=== PATIENT | female | born 1960 | race Caucasian/White ===

== ENCOUNTER → 2018-03-11 | Outpatient (CLI) | payer BC | END | disposition home or self-care (01) | LOC: KCIC MAMMO 14:24 | DX: Z12.31 Encounter for screening mammogram for malignant neoplasm of breast (principal) | CPT/HCPCS: 77063; 77067 ==

== ENCOUNTER → 2019-06-18 | Outpatient (CLI) | payer BC ==
[2014-05-26 09:27] VITALS: BP 146/83
--- NOTE | 2019-06-19 17:29 | KCIC ---
Bilateral digital screening mammograms with 3-D tomosynthesis: Reason for examination: Routine screening. Comparison is made to previous studies dated 03/11/2018 and 12/29/2015. Bilateral mammograms in CC and oblique projections were obtained with 2-D imaging and 3-D tomosynthesis imaging on a Siemens Inspiration unit and reviewed on the workstation. Interpretation was made with the benefit of CAD. The skin and nipples show no abnormalities. No abnormal axillary lymph nodes are seen. The breast parenchyma shows scattered fatty and fibroglandular density. (Breast density: Category B.) There appear to be small nodules developing in the central right breast 6 cm deep to the nipple measuring 8 mm in size and in the anterior central left breast 4 cm deep to the nipple measuring 5 mm size. These likely represent cysts but can be further evaluated with ultrasound. There are no other new dominant masses, suspicious calcifications or architectural distortion. Impression: Small nodules bilaterally which may represent cysts. Recommend further evaluation with ultrasound. BI-RAD Category 0: Incomplete. Needs additional imaging evaluation. "Our facility is accredited by the [employer] Mammography Program." This patient's information has been entered into a reminder system for the patient to be notified with the results of her examination and a target date for the next mammogram. Electronically signed by: Mayra Rogers MD (06/19/2019 5:26 PM) [id number]
== END | disposition home or self-care (01) ==
LOC: KCIC MAMMO 14:27
PROVIDERS: ATTEND Obstetrics & Gynecology
DX: Z12.31 Encounter for screening mammogram for malignant neoplasm of breast (principal); N63.10 Unspecified lump in the right breast, unspecified quadrant; N63.20 Unspecified lump in the left breast, unspecified quadrant
CPT/HCPCS: 77063; 77067

== ENCOUNTER → 2019-07-07 | Outpatient (CLI) | payer BC ==
[2014-05-26 09:27] VITALS: BP 146/83
--- NOTE | 2019-07-07 12:04 | KCIC ---
EXAM: Bilateral breast sonogram. HISTORY: 59-year-old female presents for evaluation of nodularity within both breasts demonstrated on a mammogram dated 06/18/2019. TECHNIQUE: Sonographic imaging of both breasts including all 4 quadrants of the recommendations was performed. COMPARISON: Mammogram dated 06/18/2019. FINDINGS: Sonographic imaging of the right breast demonstrates scattered areas of benign fibrocystic change. There is a 6.5 mm suspected benign fibrocystic lesion at the 1:00 position 5 cm from the nipple. Sonographic imaging of the left breast demonstrates scattered areas of benign fibrous cystic change. There is a 3.8 mm suspected benign fibrocystic lesion at the 12:00 position 4 cm from the nipple. IMPRESSION: 1. Fibrocystic changes and small benign-appearing fibers cystic lesions within both breasts, described above. This likely accounts for areas of mammographic nodularity of concern. 2. BI-RADS Category 3: Probably benign finding(s). Precautionary short term follow up with a bilateral diagnostic mammogram and sonogram in 6 months is recommended to confirm stability. Electronically signed by: Naheed Dyer MD (07/07/2019 12:01 PM) [facility]
== END | disposition home or self-care (01) ==
LOC: KCIC US 09:51
PROVIDERS: ATTEND Obstetrics & Gynecology
DX: N64.89 Other specified disorders of breast (principal)
CPT/HCPCS: 76641

== ENCOUNTER → 2019-12-31 | Outpatient (CLI) | payer BC ==
[2014-05-26 09:27] VITALS: BP 146/83
--- NOTE | 2019-12-31 11:25 | RAD ---
Examination: Limited right breast ultrasound. INDICATION: Right breast nodule seen on mammography, recommended for ultrasound evaluation. COMPARISON: Bilateral diagnostic mammogram of earlier the same day. TECHNIQUE: Grayscale and color Doppler imaging of the upper inner quadrant right breast was performed. FINDINGS: Sonographically benign nodularity in the upper inner right breast at the 2:00 position 5 cm from the nipple is identified, correlating with the mammographic finding, measuring 8 mm at this visit. Sonographic appearance is benign and shows no significant interval change from the previous ultrasound examination. Patient's mammograms reveal waxing and waning pattern of nodularity compatible with benign fibrocystic change. IMPRESSION: Benign fibrocystic change in the upper inner quadrant right breast. No evidence of malignancy. The left breast was also evaluated earlier this same day by mammography and revealed benign findings. Both breasts are recommended for return to routine mammographic screening next due in one year. BI-RADS Category 2 Benign findings Recommend return to routine screening.
--- NOTE | 2019-12-31 14:07 | RAD ---
Examination: Bilateral digital diagnostic mammogram. INDICATION: Six-month follow-up probably benign bilateral breast nodularity. COMPARISON: Bilateral mammograms of 12/22/2013, 03/11/2018, 06/18/2019. TECHNIQUE: Bilateral CC and MLO views were obtained with 2-D and 3-D technique and reviewed with computer aided detection. A right ML view was also obtained. FINDINGS: Scattered fibroglandular densities. Left mammogram shows interval resolution of the 5 mm nodularity in the anterior central left breast with no developing mass, suspicious calcification or architectural distortion. Right mammogram shows apparent interval enlargement in an oval mass in the upper inner quadrant right breast at the approximate 2:00 position 6 cm from the nipple. This needs additional imaging with targeted right breast ultrasound. This will be performed later the same day and reported separately. IMPRESSION: Incomplete. Right breast needs additional imaging. Recommend targeted ultrasound of the upper inner quadrant right breast. BI-RADS Category 0 Incomplete. Right breast needs additional imaging. BI-RADS 0 -- incomplete assessment
== END | disposition home or self-care (01) ==
LOC: MAMMO 09:28
PROVIDERS: ATTEND Nurse Practitioner Women's Health
DX: N63.12 Unspecified lump in the right breast, upper inner quadrant (principal)
CPT/HCPCS: 76641; 77066; G0279; 77062

== ENCOUNTER → 2020-01-14 | Outpatient (CLI) | payer BC ==
[2014-05-26 09:27] VITALS: BP 146/83
[~2020-01-14] MED LIST: BARIUM SULFATE 340 GM SUSPENSION. PO ONE; BARIUM SULFATE 60% 355 ML SUSP PO ONE; SIMETHICONE/SOD BICARB/CITRIC ACID PACKET. PO ONE
--- NOTE | 2020-01-14 15:51 | RAD ---
Examination: ESOPHAGRAM/BARIUM SWALLOW History: Hiatal hernia evaluation. Comparison/Correlation: None Findings: Single contrast esophagram was performed. Fluoroscopy was utilized for 20 minutes. A total of 25 images were acquired. Minimal presbyesophagus noted. No definite reflux identified during the course of this exam. No suspicious filling defects, webs, or diverticuli. Contrast flows freely into the stomach. No hiatal hernia is identified on prone Valsalva drinking images or other images. No reflux identified on prone Valsalva images. No stricture identified to involve the esophagus. Impression: Minimal presbyesophagus. No hiatal hernia, stricture or reflux identified. Electronically signed by: Shorty Gonzalez MD (01/14/2020 3:48 PM) [facility]
== END | disposition home or self-care (01) ==
LOC: RAD 09:29
PROVIDERS: ATTEND Physician Assistant
DX: K22.8 Other specified diseases of esophagus (principal)
CPT/HCPCS: 74220

== ENCOUNTER → 2020-01-29 | Outpatient (CLI) | payer BC ==
[2014-05-26 09:27] VITALS: BP 146/83
[~2020-01-29] MED LIST changes: -BARIUM SULFATE 340 GM SUSPENSION. PO ONE; -BARIUM SULFATE 60% 355 ML SUSP PO ONE; +CONTRAST GIVEN. MC PRN; +IOHEXOL 240 MG/ML 50ML VIAL. PO ONE; +IOHEXOL 300 MG/ML 100ML VIAL. IV ONE; -SIMETHICONE/SOD BICARB/CITRIC ACID PACKET. PO ONE
--- NOTE | 2020-01-29 17:19 | KCIC ---
CT study of the chest and abdomen with contrast Clinical indications: Abdominal hernia. Difficulty swallowing. Gastroesophageal reflux disease. TECHNIQUE: After IV infusion of 100 cc of Omnipaque 300, helical CT scanning of the chest and abdomen was performed. GI contrast was administered per mouth. PQRS compliance Statement One or more of the following individualized dose reduction techniques were utilized for this study: 1. Automated exposure control 2. Adjustment of the mA and/or kV according to patient size 3. Use of iterative reconstruction technique COMPARISON: None available. CHEST CT: No enlarged thoracic lymphadenopathy is evident. No thyroid gland mass is seen. No focal aneurysmal dilatation or dissection of the thoracic aorta is seen. The heart size is normal and no pericardial effusion is seen. No lung consolidation or lung mass is evident. There is mild peripheral subpleural interstitial thickening without honeycombing. This could represent very early pulmonary fibrosis. On series 8 and image 40, there is a small 4 mm groundglass lung nodule. Based on size, no further follow-up is needed as per Fleischner guidelines. No pleural effusion or pneumothorax is seen. There is a large hiatal hernia containing most of the stomach. There is associated adjacent left lung base atelectasis. Proximal bronchial tree is patent. No lytic process is seen. ABDOMEN CT: The liver and spleen and pancreas are normal. There is a gallstone within the gallbladder measuring 16 mm. No extra hepatic biliary ductal dilatation is seen. No adrenal mass is evident. Both kidneys are normal without hydronephrosis or hydroureter. No focal aneurysmal dilatation of the abdominal aorta is seen. No enlarged abdominal lymphadenopathy is seen. No obstructive bowel pattern is seen. No free air or free fluid or mesenteric edema is seen. No lytic process is seen. IMPRESSION: Large hiatal hernia containing most of the stomach. No gastric wall thickening or bowel obstruction or gastric outlet obstruction is evident. Cholelithiasis. Early mild pulmonary fibrosis. Electronically signed by: Rajan Street MD (01/29/2020 5:16 PM) [facility]
== END | disposition home or self-care (01) ==
LOC: KCIC CT 13:24
PROVIDERS: ATTEND Family Medicine
DX: K44.9 Diaphragmatic hernia without obstruction or gangrene (principal); K80.20 Calculus of gallbladder without cholecystitis without obstruction; J84.10 Pulmonary fibrosis, unspecified; J98.11 Atelectasis; R91.1 Solitary pulmonary nodule
CPT/HCPCS: 71260; 74160; Q9966; Q9967

== ENCOUNTER → 2020-07-09 | Outpatient (CLI) | payer BC ==
[2014-05-26 09:27] VITALS: BP 146/83
[~2020-07-09] MED LIST changes: +ASCO500C9 PO; -CONTRAST GIVEN. MC PRN; -IOHEXOL 240 MG/ML 50ML VIAL. PO ONE; -IOHEXOL 300 MG/ML 100ML VIAL. IV ONE; +MULT-245 PO
[2020-07-09 12:41] LABS: BASO % 1 % (0-3); EOS # 0.2 x10^3/uL (0.0-0.7); EOS % 2 % (0-3); HEMATOCRIT 42.7 % (36.0-47.0); HEMOGLOBIN 14.5 g/dL (12.0-15.5); LYMPH # 2.3 x10^3/uL (1.0-4.8); LYMPH % 31 % (24-48); MEAN CORPUSCULAR HEMOGLOBIN 30 pg (25-35); MEAN CORPUSCULAR HGB CONC 34 g/dL (31-37); MEAN CORPUSCULAR VOLUME 90 fL (79-100); MONO # 0.8 x10^3/uL (0.0-1.1); MONO % 11 % (0-9); NEUT % 56 % (31-73); PLATELET COUNT 217 x10^3/uL (140-400); RED BLOOD COUNT 4.76 x10^6/uL (3.50-5.40); RED CELL DISTRIBUTION WIDTH 13.4 % (11.5-14.5); WHITE BLOOD COUNT 7.3 x10^3/uL (4.0-11.0)
[2020-07-09 12:43] LABS: BILIRUBIN,URINE NEGATIVE (NEG); CLARITY,URINE CLEAR; COLOR,URINE YELLOW; NITRITE,URINE NEGATIVE (NEG); PROTEIN,URINE NEGATIVE (NEG-TRACE); UROBILINOGEN,URINE 0.2 mg/dL (0.2 mg/dL)
[2020-07-09 12:53] LABS: SQUAMOUS EPITHELIAL CELL,UR FEW /LPF
[2020-07-09 12:54] LABS: ALBUMIN 3.5 g/dL (3.4-5.0); CALCIUM 8.8 mg/dL (8.5-10.1); CREATININE 0.8 mg/dL (0.6-1.0); GFR 73.7; POTASSIUM 4.1 mmol/L (3.5-5.1); TOTAL BILIRUBIN 0.5 mg/dL (0.2-1.0)
[2020-07-09 12:54] LABS: BACTERIA,URINE FEW /HPF (0-FEW); RBC,URINE 0 /HPF (0-2)
--- NOTE | 2020-07-12 08:49 | NUR ---
Pre operative lab results faxed to Dr. Santos
== END | disposition home or self-care (01) ==
LOC: SURGPAT 11:43
PROVIDERS: ATTEND Obstetrics & Gynecology
DX: Z01.818 Encounter for other preprocedural examination (principal); Z11.59 Encounter for screening for other viral diseases; N81.10 Cystocele, unspecified; Z88.8 Allergy status to other drugs, medicaments and biological substances
CPT/HCPCS: 80053; 81001; 85025; 87086; U0003

== ENCOUNTER 2020-07-14 06:04 | Observation (INO) | payer BC ==
[2020-07-14] VITALS (15 sets, daily range): BP systolic 101–127; BP diastolic 54–75
[~2020-07-14] VITALS: Ht 172.7 cm; Wt 86.8 kg
[2020-07-14] MEDS ORDERED: fentaNYL PF VIAL 100 MCG/2 ML VIAL IV PRN ×2 (07:00)
[2020-07-14] MEDS ORDERED: MORPHINE SULFATE 2 MG/ML VIAL. IV PRN ×2 (07:00→10:15)
[2020-07-14] MEDS ORDERED: SCOPOLAMINE 1.5MG PATCH. TD ONE (07:00)
[2020-07-14] MEDS ORDERED: HYDROmorphone 2 MG/ML VIAL IV PRN (07:00)
[2020-07-14] MEDS ORDERED: PROCHLORPERAZINE 10 MG/2 ML VIAL. IV PRN (07:00)
[2020-07-14] MEDS ORDERED: ONDANSETRON PF 4 MG/2 ML VIAL. IV PRN ×2 (07:00→10:15)
[2020-07-14] MEDS ORDERED: SUCCINYLCHOLINE 200 MG/10 ML VIAL. ONE (07:06)
[2020-07-14] MEDS ORDERED: LIDOCAINE 2% PF 5 ML VIAL. ONE (07:06)
[2020-07-14] MEDS ORDERED: fentaNYL PF VIAL 100 MCG/2 ML VIAL ONE (07:06)
[2020-07-14] MEDS ORDERED: ROCURONIUM 50 MG/5 ML VIAL. ONE (07:06)
[2020-07-14] MEDS ORDERED: PROPOFOL 10 MG/ML (20ML) VIAL. IV ONE (07:06)
[2020-07-14] MEDS: IV RINGERS,LACTATED 1000ML 1,000 ML IV SCH ×2 (07:08→11:10)
[2020-07-14] MEDS ORDERED: ESTROGENS, CONJ VAGINAL CREAM 30GM TUBE. ONE (07:22)
[2020-07-14] MEDS ORDERED: INDIGOTINDISULFONATE SODIUM 40 MG/5 ML AMPUL. ONE (07:23)
[2020-07-14] MEDS ORDERED: BUPIVACAINE-EPI 0.25%-1:200000 MPF 30 ML VIAL. ONE ×3 (07:23→07:24)
[2020-07-14] MEDS ORDERED: ONDANSETRON PF 4 MG/2 ML VIAL. ONE (07:59)
[2020-07-14] MEDS ORDERED: DEXAMETHASONE SOD PHOS 4 MG/ML VIAL ONE (07:59)
[2020-07-14] MEDS ORDERED: FAMOTIDINE 20 MG/2 ML VIAL ONE (07:59)
[2020-07-14] MEDS ORDERED: DESFLURANE 61 TO 120 MINUTES IH ONE ×2 (07:59→08:12)
[2020-07-14] MEDS ORDERED: IV NORMAL SALINE 500 ML BAG SQ ONE (08:32)
[2020-07-14] MEDS ORDERED: PHENYLEPHRINE in 0.9% NACL PF 1 MG/10 ML SYRINGE. IV ONE (08:43)
--- NOTE | 2020-07-14 10:01 | PDOC ---
BRIEF OPERATIVE NOTE Date: Jul 14, 2020 Pre-Op Diagnosis symptomtic prolapse; cystocele Post-Op Diagnosis same Procedure Performed LAVH/BSO/anterior repair Surgeon Dr. Stephanie Santos Technology Support Analyst KRANTHI Gage Anesthesiologist Dr. Shea Anesthesia Type: General Blood Loss 50cc IV Fluid 1100cc Urine Output 100cc clear and concentrated via chawla Specimens Obtained cervix, uterus, bilateral tubes and ovaries with anterior vaginal mucosa Findings small RV uterus, normal bilateral tubes and ovaries; 2-3 degree cystocele Complications none Operative Note [id number] STEPHANIE SANTOS MD Jul 14, 2020 10:01
[2020-07-14] MEDS ORDERED: CALCIUM CARBONATE 500 MG TAB.CHEW PO PRN (10:15)
[2020-07-14] MEDS ORDERED: LACTULOSE 20 GM/30 ML SOLUTION. PO PRN (10:15)
[2020-07-14] MEDS ORDERED: SIMETHICONE 80 MG TAB.CHEW PO PRN (10:15)
[2020-07-14] MEDS ORDERED: HYDROcodone/APAP 5/325MG 1 TAB TABLET PO PRN (10:15)
[2020-07-14] MEDS ORDERED: oxyCODONE/APAP 5/325 1 TAB TABLET PO PRN (10:15)
[2020-07-14] MEDS ORDERED: KETOROLAC 30 MG/ML VIAL. IVP PRN (10:15)
[2020-07-14] MEDS ORDERED: NALOXONE 0.4 MG/ML VIAL. IV PRN (10:15)
[2020-07-14] MEDS ORDERED: ZOLPIDEM 5 MG TABLET. PO PRN (10:15)
[2020-07-14] MEDS ORDERED: diphenhydrAMINE 50 MG/ML VIAL IV PRN (10:15)
[2020-07-14] MEDS ORDERED: 0.9 % SODIUM CHLORIDE 10 ML DISP.SYRIN. IV PRN (10:15)
[2020-07-14] MEDS ORDERED: MAGNESIUM HYDROXIDE 2,400 MG/30 ML ORAL.SUSP. PO PRN (10:15)
[2020-07-14] MEDS ORDERED: diphenhydrAMINE HCL 25 MG CAPSULE PO PRN (10:15)
[2020-07-14] MEDS ORDERED: MAG HYDROX/ALUMINUM HYD/SIMETH 30 ML ORAL.SUSP PO PRN (10:15)
--- NOTE | 2020-07-14 10:54 | OP ---
DATE OF SURGERY: 07/14/2020 PREOPERATIVE DIAGNOSES: Symptomatic prolapse with significant cystocele, desiring definitive therapy. POSTOPERATIVE DIAGNOSES: Symptomatic prolapse with significant cystocele, desiring definitive therapy. PROCEDURE: Laparoscopic-assisted vaginal hysterectomy, bilateral salpingo-oophorectomy, and anterior repair. SURGEON: Africa Santos MD GREASE REMOVER: KRANTHI Gonzales ANESTHESIA: General. ANESTHESIOLOGIST: Vince Shea MD ESTIMATED BLOOD LOSS: 50 mL. URINE OUTPUT: 100 mL clear and concentrated via Mirza catheter. INTRAVENOUS FLUIDS: 1100 mL of Crystalloid. SPECIMENS: Cervix, uterus, bilateral tubes and ovaries and anterior vaginal mucosa. FINDINGS: A small retroverted uterus, normal bilateral tubes and ovaries, second to third-degree cystocele. COMPLICATIONS: None. DESCRIPTION OF PROCEDURE: This patient was taken to the operating room where general anesthesia was placed. The patient was placed in the dorsal lithotomy position in Donnie stirrups. The patient's abdomen and vagina were both prepped and draped in the normal sterile fashion and a Mirza catheter was inserted under sterile technique. Once all of this was done, she was prepped and draped. Upon my entry into the room, a timeout was performed. Once everyone agreed on the patient, the site, the procedure, the antibiotics, the procedure was initiated. A bivalve speculum was placed in the patient's vagina. A single-tooth tenaculum was used to grasp the anterior lip of the cervix. The cervix had a prior LEEP and with her being menopausal and a LEEP, it was atrophic and almost flat and flush to the vagina, so was placed almost over the os to make sure we were not near the bladder. She was injected with 10 mL of local 0.25% Marcaine with epinephrine. The Valtchev uterine manipulator was placed through the endocervical os, locked on the tenaculum and the bivalve speculum was then removed. Top gloves were discarded and changed. Attention was turned to the abdomen where a small infraumbilical skin incision was made with the scalpel. A curved Radha clamp was used to dissect through the subcuticular layer to the fascia. The 5 mm Visiport was used to directly enter the abdominal cavity. Opening patient pressure was 4-5 mmHg. Left and right lower quadrant ports were placed. There was nothing adhesed to the anterior abdominal wall, so finding an area clear of any vasculature transilluminating the abdominal wall and making a small incision and placing the 5 mm atraumatic trocars in under direct visualization. Once they were in, 4-5 mL of air were placed in these lateral ports. The camera was moved to one of the lateral ports to look at the umbilical port. Once it was assured to be in and it was insufflated as well. Once we were in the umbilical port, the carbon dioxide gas was used to maintain a pressure of 15 mmHg. She was placed in Trendelenburg and then the right and left lower quadrants were placed. The left tube and ovary were elevated, finding the ureter coursing low, staying high on the infundibulopelvic ligament, cauterizing and cutting with the LigaSure, going under the tube and ovary over to the uterus and then crossing the left round ligament as well. The uterus was pushed cephalad and the bladder flap was created sharply with the monopolar tip going across the front elevating it with the [place] and cutting across. Once this was done, the right tube and ovary were elevated. They were normal and atrophic as well, finding the ureter coursing lower on this side in the pelvis and watching it peristalsed, staying high on the infundibulopelvic ligament, cauterizing and cutting, taking the right tube and ovary as well, staying right under that going over to the uterus crossing the right round ligament, cauterizing and cutting, this was all done with the LigaSure. In that bladder flap meeting that bladder flap anteriorly, making sure it was down and then starting the uterine vessels on the right side. Once this was done, I went back to the left side and hugged the uterus and went straight down, got the uterines and stayed inside that pedicle down to the level of the uterosacral. At this point, the uterus was blanching and went back to the right side and took it down further as well under direct visualization. Staying inside that uterine pedicle and hugging the posterior cervix and taking it down. Once this was done and the bladder was down, it was completely blanched and free, all instruments were removed from the abdomen and attention was turned vaginally. The single tooth and Valtchev were removed. A weighted speculum was placed in the patient's vagina. Thyroid Malik clamps were placed on the anterior and posterior lips of the cervix respectively. Again staying very low to make sure we were in on that bladder, I went right over the edge of the cervix to make my incision anteriorly and just gently pushed it off inch by inch until I could get a good regrasp. Going around posteriorly, we entered the cul-de-sac immediately. So, a #0 Vicryl stitch was used to secure the posterior peritoneum to the vaginal cuff. It was tagged with a curved Radha clamp and the needle was cut and passed off. The short weighted vaginal speculum was removed and replaced with the long weighted Isabell speculum in the posterior cul-de-sac. At this point, I went back to going towards peeling off the anterior bladder off the cervix. Once we got it up and off, it gently pushed up with the Ray-Anila. I was able to enter the anterior cul-de-sac. The Ray-Anial was passed off and the Nanda was placed in the anterior cul-de-sac. Curved Mayra clamps x 2 were placed on the patient's left uterosacral ligament where they were doubly clamped with curved Heaneys, cut with curved Tucker scissors and suture ligated x 2 with 0 Vicryl. Second one was taken through the vaginal cuff securing uterosacral ligament to the vaginal cuff, tagging it with a straight Radha clamp and cutting and passing the needle off. This was done exactly the same on the right side, double clamping the uterosacrals with curved Mayra's, cutting with curved Tucker scissors, suture ligating x 2 with 0 Vicryl, taking the second one through the vaginal cuff securing uterosacral ligament to the vaginal cuff, tying it and tagging it with a straight Radha clamp and cutting and passing the needle off. The remaining pedicle on the right side could be easily seen. So, a curved mixture was placed around it and the vaginal LigaSure was used to cauterize and cut the remaining pedicle. The entire right side was free. The mixture was then placed around the remaining pedicle on the left side, which was smaller. It was also cauterized and cut with the vaginal LigaSure. Cervix, uterus, bilateral tubes and ovaries were delivered in total and passed off for permanent pathology. Once this was done, the anterior bladder peritoneum could easily be identified and grasped with a long Allis. A sponge stick was used to examine the pedicles and they appeared to be hemostatic and dry, so the long Isabell speculum was removed and replaced with the short weighted vaginal speculum. The peritoneum was closed in a pursestring like fashion with a full length 2-0 Vicryl, taking it through the anterior bladder peritoneum and right uterosacral ligament, posterior peritoneum and left uterosacral ligament, thus closing the peritoneum in a pursestring like fashion. Once this was done, the right and left uterosacral tags were clipped and cut off. At this point, Allis clamps were placed at 10 and 2 o'clock and 40 mL of a dilute solution of 1 part local to 3 parts injectable saline were used to inject the anterior defect. A small incision with the 15 blade was made in this and Allis clamps were placed on either side. The Metzenbaum scissors were used to open up the anterior bladder defect. We were about a cm below the urethral orifice and I started to see rugae again, so I opened up the anterior defect. Once we were at the top, the Allis clamps were fanned out on both sides and sharply and bluntly using the Metzenbaum scissors and a 4 x 4, the defect was taken down off the vaginal mucosa on both sides. There was no bleeding. It was a nice smooth plane and it peeled up very nicely. Once it was up a series of 6 interrupted 2-0 Vicryl stitches were placed and tagged in order from the urethra down to the vaginal cuff, tagging them and then going back and tying them and then using the blunt end of a curved Radha to just gently push up that anterior defect as we were tying and bringing the sides together. A large amount of vaginal mucosa was trimmed off both sides with the Metzenbaum scissors and a full length 2-0 Vicryl started at the top under the urethra and closed the vaginal mucosa in a running locked fashion all the way down the vaginal cuff and it was tied to that posterior cuff tag from the very beginning. There was no active bleeding. The cuff was hemostatic and looked great. All instruments were correct x 2 by OR personnel vaginally before we went above. At this point, we went above for a second look. All gloves were discarded and changed and attention was turned back above. She was placed back in Trendelenburg reinsufflated. Copious irrigation revealed slight oozing from the right side on the cuff. I just touched it barely with the LigaSure with excellent results. I placed Tisseel over all the pedicles. The ovarian pedicles looked good. The cuff looked good. Everything remained hemostatic even letting the gas down and watching it. The appendix was normal. The right upper quadrant was grossly normal. The cuff still remained hemostatic. So at this point, the air was taken out of all 3 trocars. The right and left trocars were taken out under direct visualization. They were hemostatic. I took one last look at the cuff as the air and gas were going down and it was still hemostatic. So once the gas was out the umbilical port was removed. All three port sites were closed with 4-0 nylon at the skin and injected with local. The patient was awakened from anesthesia and brought to recovery room in stable condition. AFRICA SANTOS MD DR: ANASTACIA/mathieu JOB#: [id number] / [id number]
--- NOTE | 2020-07-14 11:20 | NUR ---
Pt to room 337 per bed from PACU S/P LAVH and cystocele. Pt alert and oriented, already voided in the PACU and changed her pad and mesh pants. Frequent VS started, pt oriented to the room and plan of care discussed. Ice water and lemon [place] oreilles soda given per pt's request. Will monitor and support.
--- NOTE | 2020-07-14 12:00 | NUR ---
Chicken noodle soup, saltine crackers and chocolate pudding given per pt's request for lunch. Will monitor.
--- NOTE | 2020-07-14 18:40 | NUR ---
Call placed to Dr. Santos with a patient update and that the pt wanted to go home. Order given to discharge home and follow up in a week at her scheduled appt.
--- NOTE | 2020-07-14 19:00 | NUR ---
Discharge and follow up instructions reviewed and given to pt. Pt denied any questions or complaints at this time. Pt ambulated out of the hospital with staff and helped into her daughters car.
--- NOTE | 2020-07-16 19:07 | PATHOLOGY ---
[facility] Accession Number: [id number] . 01 Material submitted: . uterus - CERVIX, UTERUS, BILATERAL FALLOPIAN TUBES AND OVARIES. Modifiers: bilateral . 01 Clinical history: . CYSTOCELE URINARY FREQUENCY . 02 Diagnosis: Uterus and bilateral attached fallopian tubes and ovaries, laparoscopic- assisted vaginal hysterectomy with bilateral salpingo-oophorectomy: - Nabothian cysts, cervix. - Atrophic endometrium. - Adenomyosis, uterine corpus, focal (uterine weight 60 grams). - Congestion and involutional changes of bilateral fallopian tubes. - Involutional changes of bilateral ovaries. . (JPM:mm; 07/16/2020) [facility] 07/16/2020 1537 Local . 02 Electronically signed: . Pascual Biswas MD, Pathologist NPI- [id number] . 01 Gross description: . The specimen is received in formalin labeled "Crow Alonso, cervix, uterus, bilateral fallopian tubes and ovaries". Received is a 60 g, 6.3 x 5.4 x 3.2 cm uterus with attached cervix and attached adnexa, weighing 3 g each. The uterine serosa is pink-saeed and smooth in appearance. The 0.5 cm cervical os is surrounded by pink-saeed, shaggy to disrupted ectocervical mucosa. The uterus is oriented using the peritoneal reflection and the anterior paracervical margin is inked black. The uterus is opened laterally to reveal a pale shelley, corrugated endocervical canal measuring 2.5 cm in length. The endometrial cavity is triangular measuring 3.3 cm in length by 2.5 cm in width. The endometrium is pale shelley, glistening in appearance and measures 0.1 cm in thickness. Serial sectioning reveals a shelley-pink, trabeculated myometrium measuring 1.8 cm in thickness with no grossly distinct nodules or lesions. . The left adnexa consists of a fimbriated fallopian tube measuring 2.3 cm in length by up to 0.5 cm in diameter attached to a 2.2 x 1.1 x 1.0 cm ovary. Sectioning through the fallopian tube reveals a patent lumen and the fallopian tube appears grossly unremarkable. Sectioning through the ovary reveals pale shelley, normal ovarian stroma. . The right adnexa consists of a fimbriated fallopian tube measuring 2.7 cm in length by up to 0.5 cm in diameter attached to a 2.4 x 1.3 x 1.0 cm ovary. Sectioning through the fallopian tube reveals a patent lumen and the fallopian tube appears grossly unremarkable. Sectioning through the ovary reveals pale shelley, normal ovarian stroma. The specimen is submitted representatively as follows: . A1 12:00 cervix A2 6:00 cervix A3 anterior endomyometrium A4 posterior endomyometrium A5 left adnexa A6 right adnexa. (CAA; 07/15/2020) [facility] 07/15/2020 1534 Local . 02 Pathologist provided ICD-10: N88.8, N85.8, N80.0 . 02 CPT . 053654 Specimen Comment: A courtesy copy of this report has been sent to [phone], [phone] Specimen Comment: [id number] Specimen Comment: Report sent to / DR REYES Performed at: 01 [facility] [address] [facility] [address], [place] [id number] MD Gabo Black MD Phone: [phone] Performed at: 02 [facility] [address] [place], [place] [id number] MD Pascual Biswas MD Phone: [phone]
== END 2020-07-14 19:00 | disposition home or self-care (01) ==
LOC: SURG 06:04 → 3 NORTH 10:21
PROVIDERS: ADMIT Obstetrics & Gynecology; ATTEND Obstetrics & Gynecology
DX: N81.10 Cystocele, unspecified (principal)
CPT/HCPCS: 36415; 58552; 86850; 86900; 86901; 96360; 96361; A7015; G0378; G0379; J0330; J0690; J1100; J1885; J2370; J2405; J2704; J3010; J3480; J3490; J7030; J7040; J7120

== ENCOUNTER → 2021-01-03 | Outpatient (CLI) | payer BC ==
[2020-07-14 19:00] VITALS: BP 108/63
--- NOTE | 2021-01-03 10:37 | KCIC ---
EXAM: Bilateral digital screening mammogram with tomosynthesis. HISTORY: 60-year-old female presents for screening mammography. TECHNIQUE: Full-field digital craniocaudal and mediolateral oblique 2D and 3D tomosynthesis images of both breasts are obtained for evaluation. Computer aided detection was applied. COMPARISON: 12/31/2019, 07/07/2019, 06/18/2019, 03/11/2018 BREAST PARENCHYMAL DENSITY: Level B - Scattered fibroglandular densities. FINDINGS: There is no new suspicious mass, microcalcification or region of architectural distortion. There are stable areas of nodularity and asymmetry within both breasts. IMPRESSION: BI-RADS Category 2: Benign finding(s). RECOMMENDATION: Annual mammography is recommended. If your mammogram demonstrates that you have dense breast tissue, which could hide abnormalities, and if you have other risk factors for breast cancer that have been identified, you might benefit from s upplemental screening tests that may be suggested by your ordering physician. Dense breast tissue, i n and of itself, is a relatively common condition. This information is not provided to cause undue c oncern, but rather to raise your awareness and to promote discussion with your physician regarding th e presence of other risk factors, in addition to dense breast tissue. A report of your mammography re sults will be sent to you and your physician. You should contact your physician if you have any ques tions or concerns regarding this report. Mammography is a sensitive method for finding small breast cancers, but it does not detect them all a nd is not a substitute for careful clinical examination. A negative mammogram does not negate a clin ically suspicious finding and should not result in delay in biopsying a clinically suspicious abnorma lity. PQRS compliance statement - Patient information was entered into a reminder system with a target due date for the next mammogram. "Our facility is accredited by the [employer] Mammography Program." Electronically signed by: Naheed Dyer MD (01/03/2021 10:35 AM) [facility]
== END ==
LOC: KCIC MAMMO 09:16
PROVIDERS: ATTEND Obstetrics & Gynecology
DX: Z12.31 Encounter for screening mammogram for malignant neoplasm of breast (principal); N64.89 Other specified disorders of breast
CPT/HCPCS: 77063; 77067